=== PATIENT | male | born 1950 | race Caucasian/White ===

== ENCOUNTER 2016-08-09 21:00 | Emergency (ER) | payer MEDICARE, OTHER ==
[2016-08-09 21:17] VITALS: BP 125/62
--- NOTE | 2016-08-09 21:44 | UC ---
Complaint Male HPI - HPI Summary HPI Summary: 66 yo male with one kidney presents with a 2 day hx of f/c and dysuria Had a syncope episode this AM feels week no CP/SOB/abd pain or headache called here at 7:20 PM and was advised to get rechecked HERSON informed that we could not to STAT blood work here - History of Current Complaint Chief Complaint: UCGeneralIllness Stated Complaint: FEVER Time Seen by Provider: 08/09/16 21:04 Hx Obtained From: Patient Onset/Duration: Gradual Onset, Lasting Days Timing: Constant Severity Initially: Moderate Severity Currently: Moderate Pain Intensity: 8 - back pain and myalgias Pain Scale Used: 0-10 Numeric Aggravating Factor(s): Voiding Associated Signs And Symptoms: Positive: Back Pain, Fever - Allergies/Home Medications Allergies/Adverse Reactions: Allergies Allergy/AdvReac Type Severity Reaction Status Date / Time Heparin Allergy Severe Anaphylatic Verified 08/09/16 21:07 Shock, TURNS BRIGHT RED Latex Allergy Rash Verified 08/09/16 21:07 Sulfa Antibiotics Allergy Rash Verified 08/09/16 21:07 ivp dye Allergy Severe SEVERE RASH Uncoded 11/27/13 09:33 Home Medications: Home Medications Acetaminophen TAB* [Tylenol TAB*] 650 mg PO Q4H PRN 08/09/16 [History Confirmed 08/09/16] PMH/Surg Hx/FS Hx/Imm Hx Cardiovascular History: Hypertension GI/ History: Ulcer Cancer History: Other - kidney Other Cancer History: renal - Surgical History Surgical History: Yes Surgery Procedure, Year, and Place: 2006 NECK [place] ST[place] [facility] [place] L4-S1[place] 2012 DORSAL STIMULATOR INSERTION, [facility]. 2008 CHOLESTOMA EXCISION RIGHT EAR, [place]. GASTRIC BYPASS 2016. 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-CANCER - Family History Known Family History: Positive: Hypertension - Social History Alcohol Use: None Substance Use Type: None Substance Use Comment - Amount & Last Used: opioids last 2m ago Smoking Status (MU): Former Smoker Amount Used/How Often: 1/2 PPD When Did the Patient Quit Smoking/Using Tobacco: 08/2013 Review of Systems Constitutional: Fever, Chills Skin: Negative Eyes: Negative ENT: Negative Respiratory: Negative Cardiovascular: Negative Gastrointestinal: Negative Genitourinary: Dysuria Motor: Negative Neurovascular: Decreased Pulses, Other - syncope Musculoskeletal: Negative Neurological: Negative Psychological: Negative All Other Systems Reviewed And Are Negative: Yes Physical Exam Triage Information Reviewed: Yes Appearance: No Pain Distress, Ill-Appearing Vital Signs: Initial Vital Signs Temp 101.6 F 08/09/16 21:10 Pulse 97 08/09/16 21:10 Resp 20 08/09/16 21:10 BP 125/62 08/09/16 21:10 Pulse Ox 97 08/09/16 21:10 Vital Signs Reviewed: Yes Eyes: Positive: Conjunctiva Clear ENT: Positive: Pharynx normal. Negative: Nasal congestion, Nasal drainage, Trismus, Muffled/hoarse voice Neck: Positive: Supple, Nontender, No Lymphadenopathy Respiratory: Positive: Lungs clear, Normal breath sounds, No respiratory distress, No accessory muscle use Cardiovascular: Positive: RRR - occasional extrasystoles, No Murmur. Negative: Tachycardia, Bradycardia Abdomen Description: Positive: Nontender, No Organomegaly, Soft. Negative: CVA Tenderness (R), CVA Tenderness (L) Bowel Sounds: Positive: Present Musculoskeletal: Positive: Strength Intact Neurological: Positive: Alert Psychological Exam: Normal Skin Exam: Normal Skin: Positive: rashes Complaint Male Course/Dx - Course Course Of Treatment: pt refuses EMS transport. d/w [facility]. Perla [facility] accepts pt - Differential Dx/Diagnosis Provider Diagnoses: possible uro sepsis. syncopal episode Discharge - Discharge Plan Condition: Guarded Disposition: AGAINST MEDICAL ADVICE
== END 2016-08-09 21:39 | disposition left against medical advice (07) ==
LOC: UCCORT 21:00
DX: R30.0 Dysuria (principal); R55 Syncope and collapse; M54.9 Dorsalgia, unspecified; R50.9 Fever, unspecified; I10 Essential (primary) hypertension; Z85.528 Personal history of other malignant neoplasm of kidney; Z90.5 Acquired absence of kidney; Z98.84 Bariatric surgery status; Z88.2 Allergy status to sulfonamides; Z88.8 Allergy status to other drugs, medicaments and biological substances; Z91.040 Latex allergy status; Z91.041 Radiographic dye allergy status; Z87.891 Personal history of nicotine dependence
CPT/HCPCS: 81003; 99212; G0463